=== PATIENT | female | born 1985 | race Caucasian/White ===

== ENCOUNTER 2017-07-29 15:25 | Inpatient (IN) | payer MEDICAID ==
[2017-07-29] MEDS ORDERED: Sodium Chloride 0.9% 1,000 ML IV ONE (15:36)
[2017-07-29 15:52] LABS: % BASOPHILS 1.4 % (0.0-2.0); % EOSINOPHILS 0.4 % (0.0-5.0); % LYMPHOCYTES 19.9 % (20.0-50.0); % MONOCYTES 5.9 % (2.0-10.0); % NEUTROPHILS 72.4 % (40.0-80.0); HEMATOCRIT 34.8 % (41.0-60); HEMOGLOBIN 11.7 gm/dL (12-16); MEAN CELL VOLUME 87.2 fl (81-100); MEAN CORPUSCULAR HEMOGLOBIN 29.5 pg (27.0-31.0); MEAN CORPUSCULAR HGB CONC 33.8 pg (28.0-36.0); MEAN PLATELET VOLUME 8.4 fl; NEUTROPHILE ABSOLUTE 5.3 Th/cmm (1.8-8.0); PLATELET COUNT 287 Th/cmm (150-400); RED BLOOD COUNT 3.99 Mil/cmm (3.80-5.10); RED CELL DISTRIBUTION WIDTH 12.4 % (11.5-20.0); WHITE BLOOD COUNT 7.2 Th/cmm (4.8-10.8)
--- NOTE | 2017-07-29 15:54 | ED Physician Chart ---
ED Chief Complaint/HPI - Patient Information Date Seen:: 07/29/17 Time Seen:: 15:30 Chief Complaint:: Anorexia History of Present Illness:: onset x 3 weeks of anorexia, lethargy, dizziness, weakness, and near-syncope; pt denies LOC, ALOC, AMS, H/As, Neck pain, C/P, cough, SOB, Abd. Pain, N/V/D/C, fever, chills, or urinary s/s; denies SIs; hx of depression and anxiety; Allergies:: Allergies Allergy/AdvReac Type Severity Reaction Status Date / Time No Known Allergies Allergy Verified 07/29/17 15:34 Vitals:: Vital Signs - 8 hr 07/29/17 15:34 Temp 98.3 F HR 87 RR 16 BP 114/64 O2 Sat % 99 Historian:: Patient, Family Member Review:: Nurse's Note Reviewed ED Review of Systems - Review of Systems General/Constitutional: No fever, No chills, No weight loss, No weakness, No diaphoresis, No edema, No loss of appetite Skin: No skin lesions, No rash, No bruising Head: No headache, Light headed Eyes: No loss of vision, No pain, No diplopia ENT: No earache, No nasal drainage, No sore throat, No tinnitus Neck: No neck pain, No swelling, No thyromegaly, No stiffness, No mass noted Cardio Vascular: No chest pain, No palpitations, No PND, No orthopnea, No edema Pulmonary: No SOB, No cough, No sputum, No wheezing GI: Nausea, No vomiting, No diarrhea, No pain, No melena, No hematochezia, No constipation, No hematemesis G/U: No dysuria, No frequency, No hematuria Cloth Doffer: No vaginal discharge, No abnormal vaginal bleed, No contraction Musculoskeletal: No bone or joint pain, No back pain, Muscle pain Endocrine: No polyuria, No polydipsia Psychiatric: Prior psych history, Depression, Anxiety, No suicidal ideation, No homicidal ideation, No auditory hallucination, No visual hallucination Hematopoietic: No bruising, No lymphadenopathy Allergic/Immuno: No urticaria, No angioedema Neurological: Syncope, No focal symptoms, Weakness, Paresthesia, No headache, No seizure, Dizziness, No confusion, Vertigo ED Past Medical History - Past Medical History Obtainable: Yes Social History: Non Smoker, No Alcohol, No Drug Use, Single Surgical History: None Psychiatricy History: Depression Family Medical History - Family Member Mother Hx Family Cancer: No Hx Family Congestive Heart Failure: No Hx Family Stroke: No Hx Family Dementia: No Hx Family Tuberculosis: No ED Physical Exam - Physical Examination General/Constitutional: Awake, Well-developed, well-nourished, Alert, No distress, GCS 15, Non-toxic appearing, Ambulatory Head: Atraumatic Eyes: Lids, conjuctiva normal, PERRL, EOMI Skin: Nl inspection, No rash, No skin lesions, No ecchymosis, Well hydrated, No lymphadenopathy ENMT: External ears, nose nl, Nasal exam nl, Lips, teeth, gums nl Neck: Nontender, Full ROM w/o pain, No JVD, No nuchal rigidity, No bruit, No mass, No stridor Respiratory: Nl effort/Exclusion, Clear to Auscultation, No Wheeze/Rhonchi/Rales Cardio Vascular: RRR, No murmur, gallop, rubs, NL S1 S2 GI: No tenderness/rebounding/guarding, No organomegaly, No hernia, Normal BS's, Nondistended, No mass/bruits, No McBurney tenderness : No CVA tenderness Extremities: No tenderness or effusion, Full ROM, normal strength in all extremities, No edema, Normal digits & nails Neuro/Psych: Alert/oriented, DTR's symmetric, Normal sensory exam, Normal motor strength, Judgement/insight normal, Mood normal, Normal gait, No focal deficits Misc: normal gait, Normal back, No paraspinal tenderness ED Labs/Radiology/EKG Results - Lab Results Comments:: unremarkable except for Na+: 133 - EKG Interpretations Rate & Rhythm: 83; NSR Comments:: non-specific st-t changes ED Septic Shock - . Is Septic Shock (SBP<90, OR Lactate>4 mmol\L) present?: No - <6hrs of presentation: Vital Signs: Vital Signs - 8 hr 07/29/17 15:34 Temp 98.3 F HR 87 RR 16 BP 114/64 O2 Sat % 99 ED Reassessment (Disposition) - Reassessment Reassessment Condition:: Improved - Diagnosis Diagnosis:: Dx: Dehydration; Anorexia; Depression; Hyponatremia - Aftercare/Follow up Instructions Aftercare/Follow-Up Instructions:: Counseled pt regarding lab results/diagnosis & need follow up, Counseled pt & family regarding lab results/diagnosis & need follow up - Patient Disposition Discharge/Transfer:: Acute Care w/in this hosp Accepting Physician:: Dr. Jordan Time Called:: 1800 Time Responded:: 18:00 Admitted to:: Med/Surg Spoke to:: Dr. Jordan Admitting Medical Physician:: Dr. Jordan Condition at Disposition:: Stable, Improved
[2017-07-29 16:15] LABS: INR 1.06 (0.5-1.4)
[2017-07-29 16:28] LABS: ALB/GLOB RATIO 1.3 (1.0-1.8); ALKALINE PHOSPHATASE 45 U/L (34-104); ANION GAP 9.6 (7.0-16.0); BILIRUBIN,TOTAL 0.4 mg/dL (0.3-1.0); BUN - UREA NITROGEN 7 mg/dL (7-25); CALCIUM SERUM 9.6 mg/dL (8.6-10.3); CARBON DIOXIDE 24.9 mEq/L (21.0-31.0); CHLORIDE 102 mEq/L (98-107); CHOLESTEROL 148 mg/dL (<200); CREATININE - SERUM 0.7 mg/dL (0.6-1.2); GLUCOSE 117 mg/dL (70-105); POTASSIUM SERUM 3.5 mEq/L (3.5-5.1); SGOT 11 U/L (13-39); SGPT/ALT 9 U/L (7-52); SODIUM SERUM 133 mEq/L (136-145); TRIGLYCERIDES 50 mg/dL (<150)
[2017-07-29 16:29] LABS: ALB/GLOB RATIO 1.5 (1.0-1.8); BILIRUBIN,TOTAL 0.4 mg/dL (0.3-1.0)
[2017-07-29 16:30] LABS: AMYLASE SERUM 27 U/L (29-103); LIPASE 10 U/L (11-82)
[2017-07-29 16:37] LABS: BILIRUBIN,DIRECT 0.09 mg/dL (0.0-0.2)
[2017-07-29 16:47] LABS: AMPHETAMINE URINE NEGATIVE (NEGATIVE); BARBITURATES URINE NEGATIVE (NEGATIVE); METHADONE URINE NEGATIVE (NEGATIVE)
[2017-07-29 22:31] VITALS: BP 102/76
--- NOTE | 2017-07-30 08:11 | Diagnostic Imaging Report ---
Ultrasound abdomen HISTORY: Abnormal liver function tests COMPARISON: None Technique: Sonography of the abdomen was performed in multiple planes. FINDINGS: The liver demonstrates normal echogenicity with no evidence of focal lesions. The liver measures 14.7. There is a 3 mm echogenic focus along the gallbladder wall. No evidence of gallbladder wall thickening or pericholecystic fluid. The common bile duct measures 2 mm. Evaluation of the pancreas is limited due to bowel gas. The right kidney measures 10.5 cm. No evidence of focal lesions or hydronephrosis. The left kidney measures 9.6 cm No evidence of focal lesions or hydronephrosis. The spleen 10 cm. The visualized portions of the abdominal aorta are within normal limits in size. IMPRESSION: No focal hepatic abnormalities identified by ultrasound. 4 mm echogenic focus along the gallbladder wall suggestive of a gallbladder wall polyp. Otherwise no discrete gallstones identified. No evidence of gallbladder wall thickening or pericholecystic fluid.
--- NOTE | 2017-07-30 08:17 | Diagnostic Imaging Report ---
CHEST X-RAY: AP view INDICATION: pain COMPARISON: None FINDINGS: There is no focal consolidation or pleural effusions The heart is normal in size. The osseous structures demonstrate no acute abnormalities. Mild scoliosis is noted. IMPRESSION: No acute cardiopulmonary disease. Mild spinal scoliosis.
[2017-07-30 11:29] LABS: URINE BILIRUBIN NEGATIVE (NEGATIVE); URINE BLOOD NEGATIVE (NEGATIVE); URINE COLOR YELLOW; URINE GLUCOSE (UA) NEGATIVE (NEGATIVE); URINE KETONE NEGATIVE (NEGATIVE); URINE PH 5.5 (4.6 - 8.0); URINE PROTEIN NEGATIVE (NEGATIVE); URINE UROBILINOGEN 0.2 E.U./dL (0.2 - 1.0)
[2017-07-30 11:34] LABS: URINE BACTERIA FEW /hpf (NONE SEEN); URINE EPITHELIAL CELLS MODERATE /lpf (FEW); URINE RBC 0-2 /hpf (0-5)
--- NOTE | 2017-07-30 12:27 | Consultation ---
DATE OF CONSULTATION: 07/30/2017 TYPE OF THE REPORT: Psychiatric consult. AGE: 31. SEX: Female. PHYSICIAN: Dr. Jordan. TANK WORKER: Dr. Oleary. REASON FOR THE CONSULT: Anorexia and not eating. HISTORY OF PRESENT ILLNESS: The patient is a 31-year-old female who was admitted to the hospital because of anorexia, poor appetite for the last 3 weeks prior to her admission. The patient has been feeling weak and tired. The patient also has been having difficulty with her mood and has been depressed. The patient said that she has no appetite to eat. She denies any intention to harm herself or others. She also denies any alcohol or any street drug use. PAST PSYCHIATRIC HISTORY: The patient denies. PAST MEDICAL HISTORY: The patient denies. SOCIAL HISTORY: The patient lives with her mother and her sister. The patient is single, never , and has no children. She is unemployed. ALLERGIES: No known allergies. MENTAL STATUS EXAM: The patient appears her stated age. Flat affect. In a depressed mood. Thought processes are mainly goal directed. The patient denies auditory or visual hallucinations or delusions. She denies any suicidal or homicidal ideations. The patient is alert and oriented to time, place, person, and situation. Intact immediate, recent, and remote memories. Fair insight. Judgment is questionable. She seems to be of average intelligence based on her verbal ability. ASSESSMENT: PRIMARY DIAGNOSIS: Depressive disorder, unspecified. SECONDARY DIAGNOSIS: Anorexia. TREATMENT PLAN: We will monitor the patient's behavior and condition closely. We will start individual, as well as milieu psychotherapy. We will start the patient on Remeron. The patient also will need outpatient treatment and outpatient counseling after her discharge. Thank you, Dr. Jordan, and we will follow with you while in [facility]. JOB# [id number]
[2017-07-30] MEDS ORDERED: Ferrous Sulfate 325 MG TAB PO SCH (14:00)
--- NOTE | 2017-07-30 16:11 | History & Physical ---
ADMIT DATE: 07/30/2017 INITIAL COMPLAINTS: 1. Anorexia. 2. Extreme fatigue. 3. Altered level of consciousness. 4. Difficulty ambulating. 5. Nausea. 6. Weakness. 7. Dizziness. 8. Near syncope episode. RECENT MEDICAL HISTORY: This 31-year-old female, the daughter of a long time patient of mine in my medical practice in [place], has been seen a couple of times in my medical office, most recently yesterday 29 of July. She was brought in by her sister that is always accompanying the mom that is my patient. The sister explained that her sister, the patient is a 31-year-old has had a several week history of feeling very weak, feeling nauseated, unable to eat, feeling very fatigued and great difficulty ambulating. She had gone to the ER several weeks before and had been diagnosed with a symptom of fatigue and weakness. The fact that this patient verbalizes that she cannot eat anything, cause being great concern when I saw her in the office yesterday, 29 of July, and the fact that she was not totally alert and she looked very fatigued and very pale. I felt that she needed to go to the Emergency Department as soon as possible to ensure her viability. She presented to [facility] Emergency Department in the afternoon of 29 of July yesterday and some of the labs that she presented with included a hemoglobin of 11.7, hematocrit of 34.8, both slightly below normal, sodium level of 133. Her toxicology screen was negative. The Emergency Department physician telephoned me several hours later with the information that he felt that this patient truly needed to be admitted because of her severe dehydration, fatigue and weakness. I agreed and I gave orders over the telephone for the continuation of her normal saline flowing at 100 mL per hour. Other vitals on presentation included temperature of 98.3, heart rate of 87, respiratory rate of 16 per minute, blood pressure 114/64 and O2 saturation of 99% on room air. SOCIAL HISTORY: This patient does not ingest alcohol nor is she is a cigarette smoker. Again, her toxicology screen was totally negative for both. FAMILY HISTORY: She lives with mom and sister at home, not and no children to my knowledge, ALLERGIES: No known drug allergies. REVIEW OF SYSTEMS: HEENT: Significant for today's admission and that the patient's eye movements were extremely slow on presentation to my medical office and here at the ER, very close to somnolent with a distinct altered level of consciousness, x 3, not x 4, verbalizing very little and with the facial appearance of extreme fatigue. CHEST: Not significant for today's admission. LUNGS: Not significant for today's admission. HEART: Not significant for today's admission. ABDOMEN: Significant for today's admission and that the patient had a history on lab findings in my clinic with elevated liver enzymes, elevated ALT and elevated AST several weeks ago and also complaining of nausea, not having any appetite as felt in the abdominal area on presentation of attempting to eat food over the last several days and weeks. EXTREMITIES: Significant for today's admission and that the patient is moving very slowly and has extreme weakness, apparently not neurological in origin. PSYCHIATRIC: Significant for today's admission and that the patient has a history of an overdose of Abilify and Seroquel dating back to 2003. No other psychiatric history was given to us by the family, but pertaining to Abilify and Seroquel, the assumption could be definitely made that she has a history of depressive disorder and possibly psychosis also. SPINE: Not significant for today's admission. GENITALIA: Not significant for today's admission. PHYSICAL EXAMINATION: HEENT: Eyes equally reactive to light and accommodation, although eye movement is slow. Pupils equally reactive to light and accommodation, right and left. Fundi intact, right and left. Oropharynx intact. Tympanic membranes intact, right and left. The cephalous does not demonstrate any type of trauma. CHEST: Normal inspiration and expiration and movements of the chest wall. LUNGS: Clear to auscultation anteriorly and posteriorly. HEART: Normal sinus rhythm. No significant murmur. ABDOMEN: Nondistended, nontender to palpation. Normal bowel sounds in all 4 quadrants. No palpable masses. EXTREMITIES: Movement intact. Motor is weak, although in origin is a probable 5/5 in all 4 extremities. SPINE: Normal on palpation. GENITALIA: Refused. PSYCHIATRIC: The patient is a very subdued in her facial movements, flat affect, demonstrating extreme fatigue and possible depression in her affect. IMPRESSION: 1. Dehydration. 2. Hyponatremia with a level of low normal of 133. 3. Depressive disorder. 4. Anorexia. 5. Nausea. 6. Altered level of consciousness. 7. Somnolence. 8. Lethargy. 9. Extreme fatigue PLAN: 1. Consult with Dr. Wm Oleary, Psychiatry, to determine if psychosis is present. 2. Continue saline hydration. 3. Reintroduce normal diet. 4. Dietary consult if necessary. 5. Abdominal ultrasound. 6. Troponin 1. 7. BNP. 8. D-dimer. 9. Abdominal ultrasound and chest x-ray. 10. Admit to medical surgery. JOB# [id number]
== END 2017-07-30 15:15 | disposition home or self-care (01) | DRG 422 ==
LOC: ER 15:25 → MSI 18:45
PROVIDERS: ADMIT General Practice; ATTEND General Practice
DX: E87.1 Hypo-osmolality and hyponatremia (principal); E86.0 Dehydration; F32.9 Major depressive disorder, single episode, unspecified; R55 Syncope and collapse; F41.9 Anxiety disorder, unspecified; R63.0 Anorexia; R40.4 Transient alteration of awareness; R11.0 Nausea; R53.1 Weakness; R42 Dizziness and giddiness; R40.0 Somnolence; Z68.21 Body mass index [BMI] 21.0-21.9, adult
CPT/HCPCS: 36415-UA; 71010-TC; 76700-TC; 80053-TC; 80061-TC; 80076-TC; 80307; 80320-TC; 80329-TC; 81001-TC; 82150-TC; 82550-TC; 83690-TC; 83880-TC; 84484-TC; 84703-TC; 85025-TC; 85379-TC; 85610-TC; 93005; 94760; J7030